=== PATIENT | female | born 1990 | race Caucasian/White ===

== ENCOUNTER → 2016-10-26 | Outpatient (CLI) | payer OTHER | END | disposition home or self-care (01) | LOC: LAB 18:18 | DX: Z00.00 Encounter for general adult medical examination without abnormal findings (principal) ==

== ENCOUNTER 2021-03-26 23:00 | Emergency (ER) | payer OTHER ==
[2021-03-27] MEDS ORDERED: AUGMENTIN 875875 MG PO (02:08)
[2021-03-27] MEDS ORDERED: HYDROCODONE-AC1 EAC1 PO (02:10)
== END 2021-03-27 02:37 | disposition home or self-care (01) ==
LOC: ED 23:00
DX: S02.2XXA Fracture of nasal bones, initial encounter for closed fracture (principal); S02.40DA Maxillary fracture, left side, initial encounter for closed fracture; S00.83XA Contusion of other part of head, initial encounter; Z88.1 Allergy status to other antibiotic agents; Z91.040 Latex allergy status; Y08.89XA Assault by other specified means, initial encounter; Y93.89 Activity, other specified; Y92.89 Other specified places as the place of occurrence of the external cause; Y99.8 Other external cause status